=== PATIENT | female | born 1970 | race Caucasian/White ===

== ENCOUNTER 2023-06-27 09:27 | Emergency (ER) | payer BC, SELFPAY ==
[2023-06-27 09:28] VITALS: BP 157/89; PULSE 85; RESP 16; TEMP 36.3; O2SAT 97; BMI 40.3
[2023-06-27 09:32] VITALS: BMI 40.3
--- NOTE | 2023-06-27 09:58 | CT_ITS ---
HISTORY: facial palsy, paresthesias of the left lower extremity. TECHNIQUE: Multiple axial images were obtained of the head without intravenous contrast. A radiation dose optimization technique was used for this scan. 240 images. COMPARISON: None. FINDINGS: BRAIN PARENCHYMA: No significant attenuation abnormality. No acute intra-axial hemorrhage. CSF SPACES: Cerebral ventricles, cortical sulci, and other extra-axial CSF spaces within normal limits in size for age. No midline shift or other significant mass effect. No acute extra-axial hemorrhage. OTHER: Intact calvarium. Calcified posterior sebaceous cysts. No significant air fluid levels in the paranasal sinuses or mastoid air cells. Unremarkable orbits. CT/Brain/Head without Contrast IMPRESSION: No acute intracranial process identified. Electronically Signed: Camryn Mason MD at 11:06 EDT ,
--- NOTE | 2023-06-27 09:58 | CT_ITS ---
HISTORY: Left jaw swelling. TECHNIQUE: Helically acquired images were obtained of the neck after the intravenous administration of 75 mL Isovue 300. A radiation dose optimization technique was used for this scan. 276 images. COMPARISON: None. FINDINGS: NASOPHARYNX: Mild adenoidal hypertrophy. SUPRAHYOID NECK: Mildly enlarged tonsils. No rim-enhancing fluid collection of the oropharynx, oral cavity, parapharyngeal space, or retropharyngeal space. Mild subcutaneous edema and thickening of the platysma over the left face and neck. INFRAHYOID NECK: Unremarkable larynx, hypopharynx, and supraglottis. THYROID: Nodular with a 1.4 cm isthmus nodule. SALIVARY GLANDS: Borderline enlarged 9-10 mm left intraparotid lymph nodes. Homogeneous submandibular glands. LYMPH NODES: Enlarged level 2 lymph nodes measuring up to 1.7 cm on the left. Mildly enlarged bilateral level 5 lymph nodes measuring up to 11 mm. Mildly enlarged left level 3 and 4 lymph nodes also seen. VASCULAR STRUCTURES: Very mild carotid atherosclerosis. Retropharyngeal course of the common carotid arteries. ORBITS: Symmetric contents. PARANASAL SINUSES/MASTOID AIR CELLS: Well aerated bilaterally. OSSEOUS STRUCTURES: Periapical lucency of the right maxillary canine tooth with mild alveolar cortical breakthrough but no overlying rim-enhancing fluid collection. Diffuse heterogeneous sclerosis and small lucencies of the cervical spine, visualized upper thoracic spine, and upper chest wall. LUNG APICES: Clear. CT/Soft Tissue Neck WITH Contrast IMPRESSION: Heterogeneous mineralization of the spine and upper chest wall with multiple small lucencies and regions of sclerosis, suspicious for multiple myeloma or osseous metastases. Metabolic bone disease could have a similar appearance but considered less likely. Small periapical cyst or abscess of the right maxillary canine tooth without overlying facial abscess. Mildly enlarged adenoids and tonsils without evidence for abscess. Mild soft tissue swelling over the left face and neck, possible cellulitis without abscess. Mild left intraparotid lymphadenopathy. Mild bilateral cervical lymphadenopathy, left greater than right, which may be reactive or neoplastic. 1.4 cm thyroid nodule. Electronically Signed: Camryn Mason MD at 11:21 EDT ,
[2023-06-27 10:08] LABS: Hematocrit 35.2 % (37-47); Hemoglobin 10.7 g/dL (12.0-15.0); Mean Corp Hgb Conc 30.4 g/dL (32-36); Mean Corpuscular Hgb 27.6 pg (27.0-32.0); Mean Corpuscular Volume 90.7 fL (81-99); Mean Platelet Vol. 8.8 fl (6.2-12.0); POSITIVE COUNT YES; POSITIVE MORPHOLOGY YES; Platelet Count 311 K/mm3 (150-450); RBC Distribution Width CV 17.2 % (11.6-14.6); Red Blood Count 3.88 M/mm3 (4.2-5.4); White Blood Count 7.9 K/mm3 (4.4-11.0)
[2023-06-27 10:17] LABS: Differential Indicated MANUAL DIFF
[2023-06-27 10:25] LABS: Anion Gap 5 (5-15); BUN 16 mg/dL (7-18); BUN/Creat Ratio 18.2 RATIO (10-20); Calcium,Total 9.6 mg/dL (8.5-10.1); Chloride 104 mmol/L (98-107); Creatinine, Serum 0.88 mg/dL (0.55-1.02); EST Glomerular Filtration Rate 71 mL/min (>60); Est Glom Filt Rate - Afr Amer 86 mL/min (>60); Glucose 131 mg/dL (74-106); Sodium Level 136 mmol/L (136-145)
--- NOTE | 2023-06-27 10:26 | EX.ED.DYSGE1 ---
HPI History of Present Illness Chief Complaint: Neuro S/Sx Informant: patient Narrative Narrative: Patient is a 52-year-old female with history of obesity and recent elevation of her A1c (7) presenting with continued left facial swelling and now weakness of the left side of her face. Patient states she was seen on Sunday (4 days ago) at urgent care and was diagnosed with something wrong with my salivary gland. She was started on antibiotics?Augmentin. She does not feel that is really gotten better. When she went to bed last night she noted her tongue felt weird. This morning when she woke up her tongue continue to feel weird, her speech changed and she had significant droop on the left side of her face. She has any pain. States her eye on the left is feeling is watering denies any vision changes. Denies difficulty walking, numbness or tingling. Denies any like this before. Denies any headache. No fever or chills. No other complaints or concerns at this time [facility] Medical History no medical history Home Medications amlodipine 5 mg tablet mg 06/27/23 [History Last Taken 06/26/23 17:00 5 mg] amoxicillin 875 mg-potassium clavulanate 125 mg tablet tab 06/27/23 [History Last Taken 06/26/23 17:00 1 TAB] prednisone 20 mg tablet 40 mg (2 x 20 mg) PO DAILY #8 tabs 06/27/23 [Rx Last Taken Unknown] Allergy/AdvReac Type Severity Reaction Status Date / Time No Known Allergies Allergy Verified 06/27/23 09:35 Social History Smoking Status: Never smoker ROS ROS ED Constitutional Constitutional ED: Denies chills or fever(s) Eyes Eyes: Reports other Details: Watering from left eye ; Denies blurry vision or change in vision ENT ENT ED: Reports other Details: Left facial swelling ; Denies ear pain, rhinorrhea or sore throat Cardiovascular Cardiovascular: Denies chest pain or palpitations Respiratory/Chest Respiratory/Chest: Denies cough or dyspnea Gastrointestinal Gastrointestinal: Denies abdominal pain, nausea or vomiting Musculoskeletal Musculoskeletal: Denies arthralgias, myalgias or neck pain Integumentary Denies rash Neurologic Neurologic: Reports other Details: Left facial droop ; Denies headache(s) or weakness Psychiatric Psychiatric: Denies anxiety EXAM Physical Exam Const Vital Signs: 06/27/23 09:28 06/27/23 10:55 Temperature 97.4 F L Temperature Source Temporal Pulse Rate 85 Respiratory Rate 16 Blood Pressure 157/89 H 157/78 H Blood Pressure Mean 111 104 Pulse Ox 97 97 Oxygen Delivery Method Room Air Room Air Positive well nourished, well developed and obese General Appearance ED: well developed and NAD Nutritional Appearance: obese HEENT Reports TM's clear and moist mucous membranes HEENT Narrative: Asymmetric edema of the left face at the angle of the mandible. No significant tenderness to palpation. Normal phonation. Normal oropharynx. No intra-oral abscess or swelling appreciated. Sublingual mucosa is soft. Facial droop including the forehead on the left side present Negative for trauma or tenderness Tympanic Membrane ED: Yes TM's clear Eyes PERRL and EOMs intact bilaterally Neck no lymphadenopathy, supple and no JVD Chest Wall inspection of chest normal and palpation of chest normal Resp normal respiratory effort and clear to auscultation bilaterally GI normal to inspection, nondistended, normoactive bowel sounds, non-tender and non-distended Back/Spine no CVA tenderness Extremity normal to inspection General Extremety ED: Negative for edema or tenderness General Extremity: Negative for edema Neuro oriented x3 and no sensory deficits noted Neuro Narrative: 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 She did not notice it until I actually touched her. Sensorium / Orientation: alert Sensory Exam: sensory level loss detected Motor Exam: Negative for general weakness Psych mental status grossly normal Skin no rashes or lesions noted and no wounds MDM MDM MDM Narrative Medical decision making narrative: Patient is evaluated for new onset of a facial droop. 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 I am concerned these could be connected or there could be some type of mass/abscess that is pushing on the cranial nerve. CT soft tissue neck is obtained for further evaluation of this. Addition some baseline labs are obtained. CBC and BMP largely unremarkable. Her glucose was nonfasting is 131. She has normal creatinine. Normal calcium. CT of the brain is added on in case there is any type of mass or hemorrhage however lower suspicion for this. I do not think this is a stroke. CT soft tissue neck shows multiple findings including heterogenous mineralization of the spine and upper chest wall with multiple small lucencies and areas of sclerosis which is suspicious for either multiple myeloma or osseous metastasis. In addition there is some mild enlargement of the adenoids and tonsils without evidence of abscess and mild soft tissue swelling over the left face and neck with possible cellulitis without abscess. There is mild left intraparotid lymphadenopathy and mild bilateral cervical lymphadenopathy, left greater than right which may be reactive or neoplastic. She is a 1.4 cm thyroid nodule. Patient is informed of these findings. Liver panel added on to check alkaline phosphatase and protein. Alkaline phosphatase is mildly elevated at 188 which is nonspecific. Case is discussed with oncology on-call, Dr. Moctezuma, who does recommend ordering STACIE plus protein electrophoresis serum as well as kappa lambda light chains and will follow-up in the office in 2 to 3 weeks. In addition patient be given referral for urgent follow-up with ENT. Will be started on prednisone and given first dose in the emergency room for this facial nerve palsy. I do think this is a peripheral nerve issue but my concern is that there could be a more malignant cause of it. Patient is given a copy of for CT results. She is counseled on eye patching as well as using eyedrops for her Parra's palsy to prevent corneal abrasion/drying out of her eyes. Is given return precautions. At this time I do not think the patient needs a switch of her antibiotics that she does not have any significant abscess and is on appropriate antibiotics for this facial swelling. I am not entirely convinced is bacterial and she does not have a fever or white blood cell count but she will continue this course. It is not getting worse. I do not think this is a central process/stroke and I do not think she needs a stroke work-up at this time. Lab Data Labs: Laboratory Results - last 24 hr 06/27/23 06/27/23 09:28 09:30 WBC 7.9 RBC 3.88 L Hgb 10.7 L Hct 35.2 L MCV 90.7 MCH 27.6 MCHC 30.4 L RDW Std Deviation 57.0 H RDW Coeff of Coy 17.2 H Plt Count 311 MPV 8.8 Neut % (Auto) Not Reportable Absolute Neuts (auto) 2.8 Absolute Lymphs (auto) 3.38 Total Counted 100 Neutrophils % (Manual) 30 L Band Neutrophils % 1 Lymphocytes % (Manual) 43 H Monocytes % (Manual) 15 H Eosinophils % (Manual) 4 Basophils % (Manual) 2 H Metamyelocytes % 4 H Myelocytes % 1 H Nucleated RBCs/100 WBC 1 Diff Path Review May foll Platelet Estimate ADEQUATE RBC Morphology N CYTIC Polychromasia RARE Sodium 136 Potassium 4.0 Chloride 104 Carbon Dioxide 27.0 Anion Gap 5 BUN 16 Creatinine 0.88 Estim Creat Clear Calc 57.80 Est GFR (MDRD) Af Amer 86 Est GFR (MDRD) Non-Af 71 BUN/Creatinine Ratio 18.2 Glucose 131 H Calcium 9.6 Total Bilirubin 0.30 Direct Bilirubin 0.08 AST 29 ALT 33 Alkaline Phosphatase 188 H Total Protein 8.0 Albumin 3.5 Globulin 4.5 H POC Glucose 115 H Radiography Diagnostic Testing: Clinical Impression(s) from Imaging Studies Brain CT 06/27/23 09:58 IMPRESSION: No acute intracranial process identified. Electronically Signed: Camryn Mason MD at 11:06 EDT , Soft Tissue Neck CT 06/27/23 09:58 IMPRESSION: Heterogeneous mineralization of the spine and upper chest wall with multiple small lucencies and regions of sclerosis, suspicious for multiple myeloma or osseous metastases. Metabolic bone disease could have a similar appearance but considered less likely. Small periapical cyst or abscess of the right maxillary canine tooth without overlying facial abscess. Mildly enlarged adenoids and tonsils without evidence for abscess. Mild soft tissue swelling over the left face and neck, possible cellulitis without abscess. Mild left intraparotid lymphadenopathy. Mild bilateral cervical lymphadenopathy, left greater than right, which may be reactive or neoplastic. 1.4 cm thyroid nodule. Electronically Signed: Camryn Mason MD at 11:21 EDT , Management Discussion w/another healthcare provider: Insurance Account Assistant Discharge Plan Triage Chief Complaint: Neuro S/Sx ED Provider: Kathy Jefferson Dx/Rx/DC Orders Clinical Impression: Abnormal CT of the head, Submandibular gland swelling, Facial nerve palsy Instructions: ED Parra's Palsy, ED Salivary Gland Swelling ... Prescriptions: New prednisone 20 mg tablet 40 mg PO DAILY Qty: 8 0RF No Action amlodipine 5 mg tablet Patient Comments: take 1 tablet by mouth once daily amoxicillin-pot clavulanate 875-125 mg tablet Patient Comments: take 1 tablet by mouth twice a day for 7 days Primary Care Provider: Sofia Tillman Referrals: Gautam Daniel MD [Med Staff - Active Staff] - As soon as possible Roslyn Reilly MD [Med Staff - Active Staff] - 1-2 Weeks (Call for appointment to be seen in 2 to 3 weeks.) Sofia Tillman MD [[facility]] - Activity Restrictions/Additional Instructions: Your CT showed multiple abnormalities which could be concerning for possible cancerous process however it is unclear. I spoke with our oncologist, Dr. Reilly, and we ordered blood work to help with that work-up. Please follow-up with his office in 2 to 3 weeks but call to make an appointment today. Let them know you are seen in the emergency room and the ER doctor spoke with him. In addition I would like you to follow-up closely with ear nose and throat doctor. Please call the office today and tell them you are told to have an abnormal lymph node in your parotid gland that needs close follow-up. As we discussed tape your eye shut at night while sleeping and use eyedrops to help with dry eyes. Return to the ER if you have a progression or worsening of your symptoms. Disposition Disposition: Home, Self Care
[2023-06-27 10:50] LABS: Basophil 2 % (0-1); Eosinophil 4 % (0-5); Lymphocyte 43 % (19-41); Metamyelocyte 4 % (0-1); Monocyte 15 % (0-10); Myelocyte 1 % (0-0); Neutrophil-Band 1 % (0-5); Neutrophil-Segmented 30 % (47-70); Nucleated Red Bld Cells,Manual 1 % (0-5); Total Cells Counted 100 (MANUAL DIFF)
[2023-06-27 10:52] LABS: Absolute Lymphocyte Count 3.38 X10^3/uL (0.83-4.51); Absolute Neutrophil Count 2.8 X10^3/uL (2.0-7.7); Lymphocyte # 3.38 X10^3/ul (0.83-4.51); Neutrophil # 2.83 X10^3/uL (2.7-7.7); Platelet Estimate ADEQUATE (ADEQ)
[2023-06-27 10:53] LABS: Polychromasia RARE; Red Cell Morphology N CYTIC NORMAL (NORM C&C)
[2023-06-27 10:55] VITALS: BP 157/78; O2SAT 97
[2023-06-27 11:24] LABS: Bedside Glucose 115 mg/dL (74-106)
[2023-06-27 11:56] LABS: AST(SGOT) 29 U/L (15-37); Alanine Aminotransfer ALT/SGPT 33 U/L (13-56); Albumin, Serum 3.5 g/dL (3.2-5.0); Alkaline Phosphatase 188 U/L (45-117); Bilirubin, Direct 0.08 mg/dL (0.00-0.30); Globulin 4.5 g/dL (2.2-4.2)
[2023-06-27 13:34] VITALS: BP 161/90; PULSE 83; RESP 18; O2SAT 98
[2023-06-27] MEDS: predniSONE 20 MG Tablet 40 MG PO (13:34)
[2023-06-28 14:10] LABS: Free Kappa Light Chains 37.9 mg/L (3.3-19.4); Free Lambda Light Chains 26.6 mg/L (5.7-26.3)
[2023-06-28 15:09] LABS: Albumin 3.1 g/dL (2.9-4.4); Alpha-1-Globulins 0.3 g/dL (0.0-0.4); Gamma Globulin 1.1 g/dL (0.4-1.8); Immunoglobulin A 337 mg/dL (87-352); Immunoglobulin G 1060 mg/dL (586-1602); Immunoglobulin M 102 mg/dL (26-217); PROEL- TOTAL PROTEIN 6.6 g/dL (6.0-8.5)
[2023-06-29 09:55] LABS: Pathologist Review Reviewed
== END 2023-06-27 13:42 | disposition home or self-care (01) ==
PROVIDERS: Emergency Provider Emergency Medicine; PCP Internal Medicine; Visit Provider Emergency Medicine
DX: G51.0 Bell's palsy (principal); R22.0 Localized swelling, mass and lump, head; R93.0 Abnormal findings on diagnostic imaging of skull and head, not elsewhere classified
CPT/HCPCS: 70450; 70491; 80048; 80076; 82784; 82962; 83883; 84165; 85025; 86334; 99284; Q9967; A4216

== ENCOUNTER → 2023-07-12 | Outpatient (CLI) | payer BC, SELFPAY ==
--- NOTE | 2023-07-12 09:32 | NM_ITS ---
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 WHOLE BODY 99m Tc MDP RADIONUCLIDE BONE SCINTIGRAPHY COMPARISON: None available FINDINGS: Following the intravenous administration of 27.0 mCi of 99m Tc MDP, whole body bone images reveal: 1. Increased radiopharmaceutical concentration is heterogeneously apparent in the bilateral proximal-distal femoral diaphyses, the visualized bilateral proximal and mid humeral diaphysis, the juxta-arthroidal bilateral femoral, proximal tibial and humeral metaphyses, the proximal sternum. 2. Facilitated tracer uptake is noted in the acromioclavicular compartments of both shoulders, the right ankle. 3. There is enhanced radiotracer distribution noted in the right femoral neck. 4. The remaining skeletal structures are scintigraphically unremarkable with normal-appearing renal images and urinary bladder activity identified. NM/Bone Scan Whole Body IMPRESSION: 1. The increase in tracer uptake defined in the bilateral humeral and femoral diaphyses, the distal femoral, proximal tibial and proximal humeral metaphyses, the proximal sternum may be further evaluated with plain film radiography. This may represent a marrow expansion process. 2. Degenerative arthritis is defined in the bilateral shoulders and right ankle articulation. 3. Facilitated uptake noted in the right femoral neck is most consistent with trauma-fracture. Plain film radiography correlation may be of benefit. Electronically Signed: Juanjo Mcdonald, at 22:46 EDT ,
--- NOTE | 2023-07-12 13:44 | BI_ITS ---
MAMMOGRAPHY - BILATERAL SCREENING REASON FOR EXAM: Female, 52 years old. Routine annual screening examination. PERTINENT HISTORY: Non-contributory. TECHNIQUE: Digital bilateral breast mari (3D mammographic acquisition) in the CC and MLO projections. 2-D mediolateral oblique (MLO) and craniocaudad (CC) views of both breasts were obtained. CAD: Full Field Digital Mammography with Computer Added Detection was performed. COMPARISON: Comparison is made with prior study of January 19, 2017. FINDINGS: Breast Composition: The breasts are heterogeneously dense, which may obscure small masses. There is a new 1.6 cm x 0.8 cm spiculated density in the slightly inferior medial aspect of the left breast. Sonographic correlation is recommended for further evaluation. No other significant abnormalities are identified. BI/SCRN MAMM (CAD)W/MARI BILAT IMPRESSION: New 1.6 cm x 0.6 cm spiculated density in the slightly inferior medial aspect of the left breast. Correlation with ultrasound is recommended for further evaluation. ASSESSMENT CATEGORY: BIRADS Category 0: Incomplete. Need additional imaging evaluation. A letter regarding these results will be sent to the patient by the facility within 30 days. Approximately 10% of breast cancers are not detected by mammography. A normal mammogram should not delay biopsy of a clinically suspicious abnormality. [id number] Electronically Signed: Moshe Gamez MD at 8:50 EDT ,
== END | disposition home or self-care (01) ==
LOC: NM 09:31
PROVIDERS: PCP Internal Medicine; Referring Provider Internal Medicine Hematology & Oncology; Visit Provider Internal Medicine Hematology & Oncology
DX: Z12.31 Encounter for screening mammogram for malignant neoplasm of breast (principal); M89.9 Disorder of bone, unspecified
CPT/HCPCS: 77063; 77067; 78306; A9503

== ENCOUNTER → 2023-07-16 | Outpatient (CLI) | payer BC, SELFPAY ==
--- NOTE | 2023-07-16 12:27 | US_ITS ---
EXAM: Diagnostic unilateral left breast ultrasound. REASON FOR EXAM: Female, 52 years old. Abnormal finding on recent mammogram PERTINENT HISTORY: Non-contributory. TECHNIQUE: Real-time stanley scale and color sonographic images were obtained of the left inner breast from the 6:00 to 12:00 position. COMPARISON: Mammogram from 07/12/2023. FINDINGS: Ultrasound findings: There is a 1.3 x 1.0 x 1.2 cm indistinct, irregularly marginated, hypoechoic mass at the 9:00 position, 9 cm posterior to the nipple, and which likely corresponds to the spiculated lesion from the mammogram. This mass demonstrates some internal vascularity and posterior shadowing. US/Breast Limited Unilateral IMPRESSION: 1.3 x 1.0 x 1.2 cm left breast mass at the 9:00 position with suspicious features. Biopsy is recommended for further assessment. ASSESSMENT CATEGORY: BIRADS Category 4: Suspicious for malignancy. A letter regarding these results will be sent to the patient by the facility within 30 days. Biopsy is recommended for further assessment.. Approximately 10% of breast cancers are not detected by mammography. A normal mammogram should not delay biopsy of a clinically suspicious abnormality. Electronically Signed: Garrison Ruelas DO at 13:47 EDT ,
== END | disposition home or self-care (01) ==
PROVIDERS: PCP Internal Medicine; Referring Provider Internal Medicine Hematology & Oncology; Visit Provider Internal Medicine Hematology & Oncology
DX: R92.2 Inconclusive mammogram (principal)
CPT/HCPCS: 76642

== ENCOUNTER → 2023-07-19 | Outpatient (CLI) | payer BC, SELFPAY ==
--- NOTE | 2023-07-19 | IMM_PTH ---
PATIENT: NICK CHUNG LOC: [facility] U#:[id number] AGE/SX: 52/F ROOM: RE07/19/[address]: Dr. Destin Stephens MD : 1970 BED: DIS: 07/19/2023 SPEC #: [id number] RECD: 07/20/23 12:40 STATUS: KELLIE REQ #: [id number] HOLDEN: 07/19/23 00:[address]: Destin Stephens DEPT: IMMUNOHISTOCHEMISTRY RECD BY: Pedro Rivera ENTERED: 07/20/23 12:42 SP TYPE: IMMUNO OTHR DR: Dr. Sofia Tillman MD Tissues: Left breast, NOS Procedures: CALPONIN-1 (add) CK5-6 (add) CK8 (add) E-CAD (add) HER2 OLIVER (add) KI-67 (add) P53 (add) NE (add) IN SITU HYBRIDIZATION P40 (add) ER (initial) PHYSICIAN & INSTITUTION [address] [address] SPECIMEN INFORMATION: Tissue Source: Left breast mass Clinical Info: Abnormal mammogram, left breast Specimen Number: [id number] CPT code: 15313, 09675 x3, 97873 x6, 95374 x2 METHODOLOGY: Deparaffinized sections of prefer/formalin-fixed tissue or PAP/DQ stained slides are incubated with monoclonal/polyclonal antibodies/oligonucleotide probes. Localization is made via biotin free immunoperoxidase method. Appropriate controls are performed and reacted as expected. Results on target cell population are indicated in the following table: RESULTS: ANTIBODY / CLONE RESULT E-Cad (ECH-6) positive CK8 (29cndrV69) positive Calponin-1 (XM290O) negative CK5-6 (D5 & 1684) negative P40 (BC28) negative P53 (DO-7) negative (null pattern) Ki-67 (30-9) positive, moderate, ~50% MORPHOMETRIC ANALYSIS ER (clone 6F11) >95%, strong intensity NE (clone 16/1E2) ~80%, weak, moderate and strong intensity Her-2Neu (clone CB11) 2+ The prognostic test for HER2 is performed on formalin-fixed paraffin embedded tissue. A 3+ (positive) staining pattern is defined as intense, homogeneous, complete, circumferential membranous staining in >10% of contiguous tumor cells. A similar weak (2+) staining pattern is interpreted as equivocal. [place] follow-up testing is recommended for all equivocal cases. Positivity/negativity for ER/NE is reported if > or < 1% of the tumor cells are immuno- reactive, respectively. The ASCO/CAP criteria is used for scoring. Reference: Journal of Clinical Oncology, 2013; 31:6723-7787 & 2010; 16:7672-4970. Duration of fixation: 10 Hrs; Sample Adequate: Yes. These assays have not been validated on decalcified tissues. Results should be interpreted with caution given the likelihood of false negativity on decalcified specimens. These tests were developed and their performance characteristics determined by [facility]. They may not have been cleared or approved by the U.S. Food and Drug Administration. The FDA has determined that such clearance or approval is not necessary. The above immunohistochemical/dualISH markers are ordered and reviewed by the Pathologist. INTERPRETATION: Left breast mass, core biopsy: Invasive ductal carcinoma, nuclear grade 1. Positive for estrogen receptors (favorable prognostic indicator). Positive for progesterone receptors (favorable prognostic indicator). Equivocal for overexpression of VRR7dwv. SJ:claudine 07/23/2023 ADDENDUM ADDENDUM ADDENDUM ADDENDUM ADDENDUM ADDENDUM ADDENDUM ADDENDUM ADDENDUM ADDENDUM ADDENDUM ADDENDUM ADDENDUM ADDENDUM ADDENDUM ADDENDUM ADDENDUM ADDENDUM ADDENDUM ADDENDUM ADDENDUM ADDENDUM 08/01/2023 10:38 ADDENDUM 08/01/2023 10:38 ADDENDUM 08/01/2023 10:38 ADDENDUM 08/01/2023 10:38 ADDENDUM 08/01/2023 10:38 IN SITU HYBRIDIZATION ([place]) FOR HER2 Interpretation: Negative / Not Amplified HER2 : CEP-17 Ratio: 1.08 Average HER2 Signal: 2.45 Average CEP-17 Signal: 2.25 Number of Tumor Cells Scanned: 50 Interpretative Information: The INFORM HER2 Dual [place] DNA Probe Cocktail assay is performed on formalin-fixed paraffin embedded tissue and determines HER2 gene status by detecting HER2 copies via silver in situ hybridization (SISH) and Chromosome 17 copies via chromogenic red in situ hybridization on tumor cells. A minimum of 20 cells representing > 10% of contiguous and homogeneous invasive tumor cells were analyzed. HER2 gene status is classified as Non-amplified (HER2/Chr17 ratio < 2.0) or Amplified (HER2/Chr17 ratio greater than or equal to 2.0). If the resulting HER2/Chr17 ratio falls within 1.8 - 2.2 (Borderline), retesting by FISH is recommended. Reference: Louise AC, Elva DENNYH, Cedric DG, et al: Recommendations for Human Epidermal Growth Factor Receptor 2 Testing in Breast Cancer: [place] [employer] On[employer] / College of [place] [employer] Clinical Practice Guideline Update. J Clin Oncol 31:5148-2492, 2013. SJ:claudine 08/01/2023
--- NOTE | 2023-07-19 09:30 | BRBX_PTH ---
PATIENT: NICK CHUNG LOC: [facility] U#:[id number] AGE/SX: 52/F ROOM: RE07/19/[address]: Dr. Destin Stephens MD : 1970 BED: DIS: 07/19/2023 SPEC #: [id number] RECD: 07/19/23 10:58 STATUS: KELLIE REKimberly #: [id number] HOLDEN: 07/19/23 09:[address]: Destin Stephens DEPT: SURGICAL PATHOLOGY RECD BY: Collette Krishnamurthy ENTERED: 07/19/23 10:58 SP TYPE: BREAST BX OTHR DR: Dr. Sofia Tillman MD Tissues: Left breast, NOS Procedures: Surgery Specimen Level IV HEADER OPERATION: Left breast mass biopsy PRE-OP DIAGNOSIS: Abnormal mammogram, left breast TISSUE SUBMITTED: Left breast mass MICROSCOPIC DIAGNOSIS Left breast mass, core biopsy: Invasive ductal carcinoma, nuclear grade 1 (1.0 cm in greatest length). See comment. ZIYAD:claudine 07/23/2023 COMMENT Immunohistochemistry ([id number]) supports the above diagnosis. ER/IN/Hki9qkn studies are being performed on sections of tumor and the results from this study will be reported separately ([id number]). MICROSCOPIC DESCRIPTION Slides are reviewed. GROSS DESCRIPTION Received in fixative is one container labeled with the patient's name and designated left breast mass. The specimen consists of multiple elongated fragments of puckett-yellow fibroadipose tissue measuring in aggregate 1.5 x 0.5 x 0.1 cm. The specimen is totally submitted in one cassettes. / ZIYAD:jaxon 07/19/23 TC:0 CPT: 58186
== END | disposition home or self-care (01) ==
LOC: LABSPEC 10:25
PROVIDERS: PCP Internal Medicine; Referring Provider Surgery; Visit Provider Surgery
DX: R92.8 Other abnormal and inconclusive findings on diagnostic imaging of breast (principal); N63.20 Unspecified lump in the left breast, unspecified quadrant
CPT/HCPCS: 88305; 88341; 88342; 88368

== ENCOUNTER → 2023-08-20 | Outpatient (CLI) | payer BC, SELFPAY ==
[2023-08-20] VITALS (9 sets, daily range): BP systolic 135–170; BP diastolic 77–96; PULSE 82–103; RESP 15–18; TEMP 36.6; O2SAT 94–100; BMI 47.5
--- NOTE | 2023-08-20 | IMM_PTH ---
PATIENT: NICK CHUNG LOC: CT U#:[id number] AGE/SX: 53/F ROOM: RE08/20/[address]: Dr. Roslyn Reilly MD : 1970 BED: DIS: 08/20/2023 SPEC #: [id number] RECD: 08/21/23 10:07 STATUS: KELLIE REQ #: [id number] HOLDEN: 08/20/23 00:[address]: Roslyn Reilly DEPT: IMMUNOHISTOCHEMISTRY RECD BY: Sonali Cardenas ENTERED: 08/21/23 10:09 SP TYPE: IMMUNO OTHR DR: Dr. Sofia Tillman MD Tissues: Pelvis, NOS Procedures: RCC (add) NAPSIN A (add) CK20 (add) CK5-6 (add) CK7 (add) CK8 (add) E-CAD (add) HEP PAR (add) HER2 OLIVER (add) MAMM (add) IN (add) TTF1 (add) Pankeratin (add) GATA3 (add) P40 (add) ER (initial) PHYSICIAN & INSTITUTION [address] [address] SPECIMEN INFORMATION: Tissue Source: Right posterior iliac Clinical Info: Lesion on pelvis Specimen Number: [id number] CPT code: 53548, 17345 x17 METHODOLOGY: Deparaffinized sections of prefer/formalin-fixed tissue or PAP/DQ stained slides are incubated with monoclonal/polyclonal antibodies/oligonucleotide probes. Localization is made via biotin free immunoperoxidase method. Appropriate controls are performed and reacted as expected. Results on target cell population are indicated in the following table: RESULTS: ANTIBODY / CLONE RESULT ER (6F11) positive, focal IN (1E2) positive Her-2neu (CB11) 1-2+ (equivocal) E-Cad (ECH-6) positive Mammaglobin (31A5) positive GATA3 (L50-823) positive AE1-3 (AE1/AE3/PCK26) positive CK7 (OV-TL12/30) positive CK8 (46xftoO49) positive CK20 (KS20.8) negative TTF-1 (8G7G3/1) negative Napsin A (Rabbit Polyclonal) negative HepPar (OCh1E5) negative RCC (PN-15) negative CK5-6 (D5 & 1684) negative P40 (BC28) negative P53 (DO-7) negative (null pattern) Ki-67 (30-9) positive, moderate These tests were developed and their performance characteristics determined by [facility]. They may not have been cleared or approved by the U.[place]. Food and Drug Administration. The FDA has determined that such clearance or approval is not necessary. The above immunohistochemical/dualISH markers are ordered and reviewed by the Pathologist. INTERPRETATION: Right posterior pelvic lesion, core biopsy: Metastatic adenocarcinoma, favor breast primary (ductal carcinoma). SJ:claudine 08/22/2023
--- NOTE | 2023-08-20 | ASPIGT_PTH ---
PATIENT: NICK CHUNG LOC: [place] U#:[id number] AGE/SX: 53/F ROOM: RE08/20/[address]: Dr. Roslyn Reilly MD : 1970 BED: DIS: 08/20/2023 SPEC #: [id number] RECD: 08/20/23 11:28 STATUS: KELLIE REQ #: [id number] HOLDEN: 08/20/23 00:[address]: Roslyn Reilly DEPT: SURGICAL PATHOLOGY RECD BY: Luis Francois ENTERED: 08/20/23 11:28 SP TYPE: ASP RAD OTHR DR: Dr. Sofia Tillman MD Tissues: Pelvis, NOS Procedures: FNA Specimen Adequacy Special Stain Group II Surgery Specimen Level IV Imprint (control) HEADER OPERATION: CT-guided bony pelvis lesion biopsy PRE-OP DIAGNOSIS: Lesion on pelvis TISSUE SUBMITTED: Right posterior iliac core biopsy x3 MICROSCOPIC DIAGNOSIS Right posterior pelvic lesion, core biopsy: Metastatic adenocarcinoma, favor breast primary (ductal adenocarcinoma). See comment. SJ:rg 08/21/2023 COMMENT The specimen is evaluated at the time of biopsy by Dr. Varela. Immediate Evaluation: Set 1 (5 smear) - Negative for malignant cells. Set 2 (1 smears) - Hematopoietic cells mixed with atypical cells suspicious for malignancy noted. Immunohistochemistry ([id number]) supports the above diagnosis. Trilineage hematopoiesis is also noted. Please make reference to previous specimen ([id number]) left breast mass, core biopsy with diagnosis of invasive ductal carcinoma. Case has been reviewed in consultation with Dr. Reno who concurs with the above diagnosis. IDC:AM MICROSCOPIC DESCRIPTION Slides are reviewed. GROSS DESCRIPTION Received in fixative is one container labeled with the patient's name and designated right posterior pelvic lesion. The specimen consists of multiple irregular fragments of blood clot mixed with a piece of bone core biopsy. Bone core measures 0.3 cm in length and 0.1 cm in diameter and blood clot measures 2.0 x 1.0 x 0.1 cm. The entire specimen is submitted in one cassette after decalcification. Six touch imprints are prepared at the time of core biopsy. / ZIYAD:claudine 08/20/2023 TC:0 CPT: 43181, 08417, 65195
--- NOTE | 2023-08-20 08:45 | CT_ITS ---
PROCEDURE: CT GUIDED bone biopsy of the posterior right sacral bone. DATE: August 20, 2023. INDICATION: Female, 53 years old. Metastatic breast carcinoma. PHYSICIAN: Moshe Gamez M.D. RADIATION DOSAGE (If Supplied By Facility): CTDIvol = ( 30.87 ) mGy, DLP = ( 1023.38 ) mGycm. Individualized dose optimization techniques were utilized. PROCEDURE: The risks, benefits, and alternatives to the procedure were explained to the patient. The specific risk of hemorrhage requiring further treatment or intervention was detailed and accepted. Follow-up instructions were discussed with the patient as well. Written informed consent was obtained. The patient was brought into the CT suite and placed in the prone position. . An appropriate entry site was identified. The overlying skin was prepped and draped in the usual sterile fashion. 1% lidocaine was administered subcutaneously for local anesthesia. Conscious sedation was performed. The patient received 3 mg of Versed and 100 mcg of fentanyl intravenously. Conscious sedation was started at 10:14 AM and terminated at 10:58 AM. The patient was independently monitored by the department nurse. Under CT guidance, a bone biopsy were performed utilizing an 11-gauge bone marrow biopsy needle system. The specimens were then placed in the appropriate fluid and transported to the laboratory for analysis. Hemostasis was obtained. The patient tolerated the procedure well without immediate complications. CT/Biopsy/Inj or Needle Placement IMPRESSION: Successful CT guided biopsy of the right sacrum, as described above. Conscious sedation protocol was followed. Electronically Signed: Moshe Gamez MD at 13:39 EDT ,
[2023-08-20 08:57] LABS: Hematocrit 34.1 % (37-47); Hemoglobin 10.1 g/dL (12.0-15.0); Mean Corp Hgb Conc 29.6 g/dL (32-36); Mean Corpuscular Hgb 27.5 pg (27.0-32.0); Mean Corpuscular Volume 92.9 fL (81-99); Mean Platelet Vol. 8.6 fl (6.2-12.0); POSITIVE COUNT YES; POSITIVE MORPHOLOGY YES; Platelet Count 384 K/mm3 (150-450); RBC Distribution Width CV 16.7 % (11.6-14.6); RBC Distribution Width SD 57.2 fl (35.1-43.9); Red Blood Count 3.67 M/mm3 (4.2-5.4); White Blood Count 9.2 K/mm3 (4.4-11.0)
[2023-08-20 08:59] LABS: Differential Indicated MANUAL DIFF
[2023-08-20 09:05] LABS: Prothrombin Time (Protime)PT. 13.2 SECONDS (11.7-14.9)
[2023-08-20 09:06] LABS: Partial Thromboplast Time 26.4 Seconds (24.1-36.2)
[2023-08-20 10:10] LABS: Basophil 1 % (0-1); Eosinophil 2 % (0-5); Lymphocyte 51 % (19-41); Monocyte 5 % (0-10); Myelocyte 1 % (0-0); Neutrophil-Band 1 % (0-5); Neutrophil-Segmented 38 % (47-70); Platelet Estimate ADEQUATE (ADEQ); Promyelocyte 1 % (0-0); Red Cell Morphology NORM C+C NORMAL (NORM C&C); Total Cells Counted 100 (MANUAL DIFF)
[2023-08-20 10:11] LABS: Absolute Neutrophil Count 3.6 X10^3/uL (2.0-7.7)
[2023-08-20] MEDS: 0.9% Normal Saline (250mL Bag) 250 ML 15 ML IV (10:13)
[2023-08-20] MEDS: Midazolam 2 MG/2 ML Syringe IV ×2 (10:14→10:46)
[2023-08-20] MEDS: fentaNYL 100 MCG/2 ML Ampul IV ×2 (10:15→10:45)
[2023-08-20] MEDS: Lidocaine 2% (20 ml mdv) 20 ML Vial INFILT (10:24)
[2023-08-20 15:31] LABS: Pathologist Review Reviewed
== END | disposition home or self-care (01) ==
LOC: CT 08:36
PROVIDERS: Radiology Diagnostic Radiology; PCP Internal Medicine; Referring Provider Internal Medicine Hematology & Oncology; Visit Provider Internal Medicine Hematology & Oncology
DX: Z01.818 Encounter for other preprocedural examination (principal); C79.51 Secondary malignant neoplasm of bone; D89.0 Polyclonal hypergammaglobulinemia; N63.20 Unspecified lump in the left breast, unspecified quadrant; M89.9 Disorder of bone, unspecified
CPT/HCPCS: 38221; 36415; 77012; 85025; 85610; 85730; 88172; 88305; 88313; 88341; 88342; 99156; 99157; J7050; A4216

== ENCOUNTER → 2023-08-24 | Outpatient (CLI) | payer BC, SELFPAY ==
--- NOTE | 2023-08-24 06:45 | MRI_ITS ---
STUDY: MRI BRAIN WITH AND WITHOUT CONTRAST REASON FOR EXAM: Female, 53 years old. STAGING METS BREAST CANCER W/ L FACIAL PALSY TECHNIQUE: Standardized multiplanar fat and water weighted pulse sequences were obtained. IV 24 cc Clariscan was administered for the contrast portion of the examination. COMPARISON: CT of the brain June 27, 2023 FINDINGS: Normal size of the ventricles and extra-axial spaces for the patient''s age. Normal white matter tracts of the supratentorial brain. Normal bilateral basal ganglia. Normal thalami. There is no extra-axial fluid accumulation. Normal flow voids within the major intracranial circulation suggesting patency by spin echo criteria. Normal venous enhancement. There is no enhancing intra-axial or extra-axial abnormality. Normal sella turcica, pituitary gland, infundibular stalk, optic chiasm and hypothalamus. Normal tectal plate and pineal gland. Normal midbrain, logan and medulla. Normal cerebellum. Normal basal cisterns. Normal bilateral temporal bones. Normal bilateral internal auditory canals. No demonstrated orbital abnormality, within the constraints of a routine brain study. Normal visualized paranasal sinuses. The bony calvarium is intact and there is no focal signal abnormality. However, there are multiple small soft tissue masses within the scalp largest located overlying the vertex just to the right of the midline measuring approximately 2 x 1.4 cm demonstrating foci of enhancement. Second lesion overlies the right parietal bone but does not appear to enhance. . There are also smaller lesions lateral to the left and right posterior parietal bones Normal visualized upper cervical spine. MRI/Brain W/WO Contrast IMPRESSION: Normal unenhanced and enhanced MRI of the brain. No evidence for pulmonary metastasis Incidental finding of multiple lesions within the scalp of indeterminate etiology the largest of which demonstrate partial enhancement. Cannot definitively exclude inflammatory versus neoplastic etiology. Dermatologic consultation recommended for further assessment Electronically Signed: Robb Leblanc MD at 17:02 EDT ,
== END | disposition home or self-care (01) ==
LOC: MRI 06:29
PROVIDERS: PCP Internal Medicine; Referring Provider Internal Medicine Hematology & Oncology; Visit Provider Internal Medicine Hematology & Oncology
DX: D89.0 Polyclonal hypergammaglobulinemia (principal); C79.51 Secondary malignant neoplasm of bone; N63.20 Unspecified lump in the left breast, unspecified quadrant
CPT/HCPCS: 70553; A9575

== ENCOUNTER → 2024-09-26 | Outpatient (CLI) | payer BC, SELFPAY ==
--- NOTE | 2024-09-26 10:58 | VDLE_ITS ---
Reason For Study: Left leg swelling RIGHT LEFT CFV is compressible, spontaneous, phasic, GSV is normal. competent and demonstrates normal CFV is compressible, spontaneous, phasic, augmentation. competent, and demonstrates normal Procedure augmentation. This is a venous duplex using B-mode, color FV is compressible, spontaneous, phasic, flow and spectral Doppler. competent and demonstrates normal Exam performed in department. augmentation. A preliminary report was called and/or faxed POP V is compressible, spontaneous, phasic, to Joan Harkins [employer]. competent and demonstrates normal augmentation. T/P Trunk is compressible. PTV is compressible. LT PerV is compressible. VL/Venous Duplex US, Unilateral Interpretation Summary Deep veins of the left lower extremity are patent and compressible segmentally. There is no evidence of left lower extremity deep vein thrombosis. Valvular competence appears intac t within the proximal deep venous system on the left . The left great saphenous vein appears patent a nd compressible segmentally. The right common femoral vein is patent and compressible . Ordering Physician: Joan Harkins Referring Physician: Sofia Tillman M.D. Performed By: Sylvia Booker RVT
== END | disposition home or self-care (01) ==
LOC: CVS 10:57
PROVIDERS: PCP Internal Medicine; Referring Provider Nurse Practitioner Family; Visit Provider Nurse Practitioner Family
DX: M79.89 Other specified soft tissue disorders (principal); Z91.89 Other specified personal risk factors, not elsewhere classified
CPT/HCPCS: 93971

== ENCOUNTER → 2025-11-16 | Outpatient (CLI) | payer BC, SELFPAY ==
[2025-11-16 11:22] LABS: Hematocrit 36.7 % (37-47); Hemoglobin 12.3 g/dL (12.0-15.0); Immature Granulocytes Count 0.030 X10^3/uL (0.0-0.0); Mean Corp Hgb Conc 33.5 g/dL (32-36); Mean Corpuscular Volume 105.2 fL (81-99); Mean Platelet Vol. 8.4 fl (6.2-12.0); NRBC Flagged by Analyzer 0 % (0-5); Platelet Count 254 K/mm3 (150-450); RBC Distribution Width CV 13.1 % (11.6-14.6); RBC Distribution Width SD 50.4 fl (35.1-43.9); Red Blood Count 3.49 M/mm3 (4.2-5.4); White Blood Count 6.9 K/mm3 (4.4-11.0)
[2025-11-16 11:51] LABS: AST(SGOT) 25 U/L (<=31); Alanine Aminotransfer ALT/SGPT 30 U/L (<=34); Albumin, Serum 4.0 g/dL (3.5-5.0); Alkaline Phosphatase 49 U/L (35-104); Anion Gap 11 (5-15); BUN 14 mg/dL (4-19); BUN/Creat Ratio 13.1 RATIO (10-20); Calcium,Total 9.5 mg/dL (7.6-11.0); Carbon Dioxide 23.8 mmol/L (21.0-32.0); Chloride 103 mmol/L (98-108); Globulin 2.9 g/dL (2.2-4.2); Glucose 142 mg/dL (70-99); Potassium 3.5 mmol/L (3.3-5.1)
[2025-11-16 19:20] LABS: Xtra Tube EP Lab EXTRA TUBE
[2025-11-17 07:07] LABS: CA 27.29 42.2 U/mL (0.0-38.6)
== END | disposition home or self-care (01) ==
PROVIDERS: PCP Internal Medicine; Referring Provider Nurse Practitioner Family; Visit Provider Nurse Practitioner Family
DX: C50.312 Malignant neoplasm of lower-inner quadrant of left female breast (principal); C79.51 Secondary malignant neoplasm of bone
CPT/HCPCS: 36415; 80053; 85025; 86300